=== PATIENT | female | born 1980 | race Hispanic/Latino ===

== ENCOUNTER 2018-10-04 16:18 | Emergency (ER) | payer BC, SELFPAY ==
--- NOTE | 2018-10-04 17:07 | EDPHYS ---
Physician Documentation [facility] Name: Jaymie Nava Age: 37 yrs Sex: Female : 1980 Arrival Date: 10/04/2018 Time: 16:21 Bed 13 Private MD: ED Physician Nella Casiano HPI: 10/04 17:11 This 37 yrs old Female presents to ER via Ambulatory with complaints of Back snw Pain. 17:11 The patient presents with pain that is acute, with no known mechanism of injury. The snw symptoms are located in the low back. Onset: The symptoms/episode began/occurred 4 day(s) ago, and became persistent. The pain radiates to the left quadriceps. Associated signs and symptoms: Pertinent positives: radiated pain down left anterior leg. The problem was sustained from unknown cause. Severity of symptoms: At their worst the symptoms were moderate. The patient has experienced similar episodes in the past. The patient has not recently seen a physician. 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 - Social history:: Smoking status: Patient uses tobacco products, 4 cigarettes a day . - Ebola Screening: : No symptoms or risks identified at this time. ROS: 17:09 Constitutional: Negative for fever, chills, and weight loss, Eyes: Negative for injury, snw pain, redness, and discharge, ENT: Negative for injury, pain, and discharge, Neck: Negative for injury, pain, and swelling, Cardiovascular: Negative for chest pain, palpitations, and edema, Respiratory: Negative for shortness of breath, cough, wheezing, and pleuritic chest pain, Abdomen/GI: Negative for abdominal pain, nausea, vomiting, diarrhea, and constipation, : Negative for injury, bleeding, discharge, and swelling, Skin: Negative for injury, rash, and discoloration, Neuro: Negative for headache, weakness, numbness, tingling, and seizure. 17:09 Back: Positive for pain at rest, pain with movement, radiated pain. 17:09 MS/extremity: Positive for shooting pain down left anterior leg. Exam: 17:09 Neuro: Exam negative for acute changes. snw 17:09 Constitutional: This is a well developed, well nourished patient who is awake, alert, snw and in no acute distress. Head/Face: Normocephalic, atraumatic. Eyes: Pupils equal round and reactive to light, extra-ocular motions intact. Lids and lashes normal. Conjunctiva and sclera are non-icteric and not injected. Cornea within normal limits. Periorbital areas with no swelling, redness, or edema. ENT: Nares patent. No nasal discharge, no septal abnormalities noted. Tympanic membranes are normal and external auditory canals are clear. Oropharynx with no redness, swelling, or masses, exudates, or evidence of obstruction, uvula midline. Mucous membranes moist. Neck: Trachea midline, no thyromegaly or masses palpated, and no cervical lymphadenopathy. Supple, full range of motion without nuchal rigidity, or vertebral point tenderness. No Meningismus. Chest/axilla: Normal chest wall appearance and motion. Nontender with no deformity. No lesions are appreciated. Cardiovascular: Regular rate and rhythm with a normal S1 and S2. No gallops, murmurs, or rubs. Normal PMI, no JVD. No pulse deficits. Respiratory: Lungs have equal breath sounds bilaterally, clear to auscultation and percussion. No rales, rhonchi or wheezes noted. No increased work of breathing, no retractions or nasal flaring. Abdomen/GI: Soft, non-tender, with normal bowel sounds. No distension or tympany. No guarding or rebound. No evidence of tenderness throughout. Back: No spinal tenderness. No costovertebral tenderness. Full range of motion. Skin: Warm, dry with normal turgor. Normal color with no rashes, no lesions, and no evidence of cellulitis. MS/ Extremity: Pulses equal, no cyanosis. Neurovascular intact. Full, normal range of motion. Neuro: Awake and alert, GCS 15, oriented to person, place, time, and situation. Cranial nerves II-XII grossly intact. Motor strength 5/5 in all extremities. Sensory grossly intact. Cerebellar exam normal. Normal gait. Psych: Awake, alert, with orientation to person, place and time. Behavior, mood, and affect are within normal limits. Vital Signs: 16:32 BP 126 / 71; Pulse 82; Resp 18 S; Temp 97.8(TE); Pulse Ox 98% on R/A; Weight 106.59 kg aa5 (M); Height 5 ft. 3 in. (160.02 cm) (R); Pain 8/10; 16:32 Body Mass Index 41.63 (106.59 kg, 160.02 cm) aa5 MDM: 16:47 Patient medically screened. snw 17:08 Data reviewed: vital signs, nurses notes. Data interpreted: Pulse oximetry: on room air snw is 98 %. Counseling: I had a detailed discussion with the patient and/or guardian regarding: the historical points, exam findings, and any diagnostic results supporting the discharge/admit diagnosis, the need for outpatient follow up, to return to the emergency department if symptoms worsen or persist or if there are any questions or concerns that arise at home. Special discussion: Based on the history and exam findings, there is no indication for further emergent testing or inpatient evaluation. I discussed with the patient/guardian the need to see the primary care provider for further evaluation of the symptoms. Administered Medications: No medications were administered Disposition: 10/04/18 17:05 Discharged to Home. Impression: Low back pain, Radiculopathy, lumbar region. - Condition is Stable. - Discharge Instructions: Back Pain, Adult, Lumbosacral Radiculopathy, Musculoskeletal Pain, Back Injury Prevention, [id number], Back Exercises, [id number], Cryotherapy, Rehydration, Adult, Heat Therapy. - Prescriptions for Diclofenac Sodium 75 mg Oral Tablet Sustained Release - take 1 tablet by ORAL route 2 times per day; 30 tablet. orphenadrine citrate 100 mg Oral Tablet Sustained Release - take 1 tablet by ORAL route 2 times per day As needed; 20 tablet. - Work release form, Medication Reconciliation Form, Thank You Letter, Antibiotic Education, Prescription Opioid Use form. - Follow up: Private Physician; When: 2 - 3 days; Reason: Recheck today's complaints, Continuance of care, Re-evaluation by your physician. Follow up: Emergency Department; When: As needed; Reason: Worsening of condition. Signatures: Susana Zarco, [facility] Yoly Guerrero RN RN aa5 Conklin, Kamini, RN RN hb Corrections: (The following items were deleted from the chart) 17:19 17:05 10/04/2018 17:05 Discharged to Home. Impression: Low back pain; Radiculopathy, hb lumbar region. Condition is Stable. Forms are Medication Reconciliation Form, Thank You Letter, Antibiotic Education, Prescription Opioid Use. Follow up: Private Physician; When: 2 - 3 days; Reason: Recheck today's complaints, Continuance of care, Re-evaluation by your physician. Follow up: Emergency Department; When: As needed; Reason: Worsening of condition. snw
--- NOTE | 2018-10-04 17:07 | ER ---
Nurse's Notes [facility] Name: Jaymie Nava Age: 37 yrs Sex: Female : 1980 Arrival Date: 10/04/2018 Time: 16:21 Bed 13 Private MD: Diagnosis: Low back pain;Radiculopathy, lumbar region Presentation: 10/04 16:30 Presenting complaint: Patient states: lower back pain radiating down left leg that aa5 began 1 week ago. Pt denies known injury. Transition of care: patient was not received from another setting of care. Onset of symptoms was September 2018. Risk Assessment: Do you want to hurt yourself or someone else? Patient reports no desire to harm self or others. Initial Sepsis Screen: Does the patient meet any 2 criteria? No. Patient's initial sepsis screen is negative. Does the patient have a suspected source of infection? No. Patient's initial sepsis screen is negative. Care prior to arrival: None. 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 - Social history:: Smoking status: Patient uses tobacco products, 4 cigarettes a day . - Ebola Screening: : No symptoms or risks identified at this time. Screenin:45 Abuse screen: Denies threats or abuse. Denies injuries from another. Nutritional hb screening: No deficits noted. Tuberculosis screening: No symptoms or risk factors identified. Fall Risk None identified. Assessment: 16:45 General: Appears in no apparent distress. Behavior is calm, cooperative. Pain: Pain hb currently is 8 out of 10 on a pain scale. Neuro: Level of Consciousness is awake, alert, obeys commands, Oriented to person, place, time, situation. Cardiovascular: Capillary refill < 3 seconds Patient's skin is warm and dry. Respiratory: Airway is patent Respiratory effort is even, unlabored, Respiratory pattern is regular, symmetrical. GI: No signs and/or symptoms were reported involving the gastrointestinal system. : No signs and/or symptoms were reported regarding the genitourinary system. EENT: No signs and/or symptoms were reported regarding the EENT system. Derm: Skin is intact, is healthy with good turgor. Musculoskeletal: Reports back pain. Vital Signs: 16:32 BP 126 / 71; Pulse 82; Resp 18 S; Temp 97.8(TE); Pulse Ox 98% on R/A; Weight 106.59 kg aa5 (M); Height 5 ft. 3 in. (160.02 cm) (R); Pain 8/10; 16:32 Body Mass Index 41.63 (106.59 kg, 160.02 cm) aa5 ED Course: 16:21 Patient arrived in ED. mr 16:30 Arm band placed on. aa5 16:31 Triage completed. aa5 16:36 Susana Zarco FNP-C is PHCP. snw 16:36 Nella Casiano MD is Attending Physician. snw 16:45 Patient has correct armband on for positive identification. Bed in low position. Call hb light in reach. 17:17 Kamini Conklin, RN is Primary Nurse. hb 17:18 No provider procedures requiring assistance completed. Patient did not have IV access hb during this emergency room visit. Administered Medications: No medications were administered Outcome: 17:05 Discharge ordered by . snw 17:18 Discharged to home ambulatory. hb 17:18 Condition: stable 17:18 Discharge instructions given to patient, Instructed on discharge instructions, follow up and referral plans. medication usage, Demonstrated understanding of instructions, follow-up care, medications, Prescriptions given X 2. 17:19 Patient left the ED. hb Signatures: Susana Zarco FNP-C FNP-Mar Tiny ClarkYoly RN RN aa5 Kamini Conklin, ALONA RN hb Corrections: (The following items were deleted from the chart) 16:37 16:32 BP 126 / 71; Pulse 82bpm; Resp 18bpm; Spontaneous; Pulse Ox 98% RA; Temp 97.8F aa5 Temporal; 104.33 kg Reported; Height 5 ft. 3 in. Reported; BMI: 40.7; Pain 8/10; aa5
[2018-10-04 18:09] VITALS: BP 126/71; TEMP 97.8; O2SAT 98
== END 2018-10-04 17:19 | disposition home or self-care (01) ==
LOC: ER 16:18
DX: M54.16 Radiculopathy, lumbar region (principal); Z72.0 Tobacco use
CPT/HCPCS: 99282